=== PATIENT | male | born 1945 | race Caucasian/White ===

== ENCOUNTER 2020-01-14 07:03 | Observation (INO) | payer MEDICARE ==
[~2020-01-14] VITALS: Ht 167.6 cm; Wt 72.7 kg
[~2020-01-14 07:03] MED LIST: ALPR0.5T6 PO; ASPI-496 PO; DOXA4TAB3 PO; GLIP2.5T3 PO; LISI2.5T PO; OMEG1CAP6 PO; ROSU5TAB PO
[2020-01-14] MEDS: SODIUM CHLORIDE 0.9% 1,000 ML IV SCH ×3 (07:34→23:34)
[2020-01-14 07:39] VITALS: BP 122/71
[2020-01-14] MEDS ORDERED: HYDR25TA6 PO (07:58)
[2020-01-14] MEDS ORDERED: METF500T17 PO (07:58)
[2020-01-14] MEDS ORDERED: LISI-170 PO (07:58)
[2020-01-14] MEDS ORDERED: ATOR20TA37 PO (07:58)
[2020-01-14] MEDS ORDERED: FLUT15.845 INH (07:58)
[2020-01-14] MEDS ORDERED: CETI-158 PO (07:58)
[2020-01-14] MEDS ORDERED: MIDAZOLAM 1 MG/ML, 5ML ONE (08:22)
[2020-01-14] MEDS ORDERED: LIDOCAINE 2%, 20ML ONE ×2 (08:23→09:23)
[2020-01-14] MEDS ORDERED: CEFAZOLIN 1,000 MG ONE (08:23)
[2020-01-14] MEDS ORDERED: CEFAZOLIN PMX 1GM/50ML 50 ML ONE (08:23)
[2020-01-14] MEDS ORDERED: FENTANYL PF 100 MCG/2ML ONE (08:23)
[2020-01-14 08:33] LABS: BASOPHILS # (AUTO) 0.03 x10^3/uL (0-0.1); BASOPHILS % (AUTO) 0 % (0-1); EOSINOPHILS % (AUTO) 5 % (1-7); LYMPHOCYTES # (AUTO) 1.98 x10^3/uL (1-3.4); LYMPHOCYTES % (AUTO) 24 % (22-44); MD NO; MEAN CORPUSCULAR HEMOGLOBIN 30.9 pg (27.5-34.5); MEAN CORPUSCULAR HGB CONC 32.4 g/dL (33.2-36.2); MEAN CORPUSCULAR VOLUME 95.3 fL (81-97); MEAN PLATELET VOLUME 7.7 fL (7.4-10.4); MONOCYTES % (AUTO) 9 % (2-9); NEUTROPHILS # (AUTO) 5.11 x10^3/uL (1.8-6.8); NEUTROPHILS % (AUTO) 62 % (42-75); PLATELET COUNT 272 x10^3/uL (130-400); RED CELL DISTRIBUTION WIDTH 13.1 % (9.4-14.8)
[2020-01-14 08:41] LABS: ANION GAP 5 mmol/L (5-15); CALCIUM 9.1 mg/dL (8.5-10.1); CHLORIDE 104 mmol/L (98-107); CREATININE 1.29 mg/dL (0.7-1.3)
[2020-01-14] MEDS ORDERED: ONDANSETRON 2MG/ML, 2ML ONE (08:56)
[2020-01-14] MEDS ORDERED: ONDANSETRON 2MG/ML, 2ML IV PRN (10:00)
[2020-01-14] MEDS ORDERED: HYDROcodone/APAP 5/325 TABLET PO PRN (10:00)
[2020-01-14] MEDS ORDERED: ZOLPIDEM 5MG TABLET PO PRN (10:00)
[2020-01-14] MEDS ORDERED: Hold all anticoagulants for 24 hours MC PRN (10:00)
[2020-01-14] MEDS ORDERED: CEFAZOLIN PMX 1GM/50ML 50 ML IVPB SCH (10:00)
[2020-01-14] MEDS ORDERED: CALCIUM CARBONATE 500 MG TAB.CHEW PO PRN (11:30)
[2020-01-14 14:00] VITALS: BP 134/60
[2020-01-14 18:30] VITALS: BP 146/69
[2020-01-14] MEDS ORDERED: AMIODARONE 150 MG in DEXTROSE 5% 100 ML IV ONE (19:30)
[2020-01-14] MEDS ORDERED: AMIODARONE 450 MG in DEXTROSE 5% 241 ML IV PRN (19:30)
[2020-01-14] MEDS: SODIUM CHLORIDE FLUSH 10ML SYR IVF SCH (20:12)
[2020-01-14] MEDS ORDERED: MELATONIN 5 MG TABLET PO PRN (21:00)
[2020-01-14] MEDS ORDERED: metFORMIN 500 MG TABLET PO SCH (21:00)
[2020-01-15 01:14] VITALS: BP 122/62
[2020-01-15 06:34] VITALS: BP 112/65
[2020-01-15] MEDS: SODIUM CHLORIDE 0.9% 1,000 ML IV SCH (07:24)
[2020-01-15] MEDS: SODIUM CHLORIDE FLUSH 10ML SYR IVF SCH (08:11)
[2020-01-15] MEDS ORDERED: ASPIRIN 81 MG TABLET EC PO SCH (09:00)
[2020-01-15] MEDS ORDERED: CETIRIZINE 10 MG TABLET PO SCH (09:00)
[2020-01-15] MEDS ORDERED: OMEGA-3/FISH OIL CAPSULE PO SCH (09:00)
[2020-01-15] MEDS ORDERED: HYDROCHLOROTHIAZIDE 25 MG TABLET PO SCH (09:00)
[2020-01-15] MEDS ORDERED: LISINOPRIL 20 MG TABLET PO SCH (09:00)
[2020-01-15] MEDS ORDERED: ATORVASTATIN 20 MG TABLET PO SCH (09:00)
[2020-01-15] MEDS ORDERED: ACETAMINOPHEN 325 MG TABLET PO PRN (09:30)
== END 2020-01-15 10:18 | disposition home or self-care (01) ==
LOC: CACL 07:03 → 5SO 09:52 → CACL 10:43 → DCLOUNGE 01-15 10:08
PROVIDERS: ADMIT Internal Medicine Cardiovascular Disease; ATTEND Internal Medicine Cardiovascular Disease
DX: I49.5 Sick sinus syndrome (principal); I10 Essential (primary) hypertension; E78.2 Mixed hyperlipidemia; R55 Syncope and collapse; I73.9 Peripheral vascular disease, unspecified; E11.9 Type 2 diabetes mellitus without complications; E78.00 Pure hypercholesterolemia, unspecified; I45.2 Bifascicular block; F41.9 Anxiety disorder, unspecified; Z79.899 Other long term (current) drug therapy; Z79.82 Long term (current) use of aspirin; Z79.84 Long term (current) use of oral hypoglycemic drugs
CPT/HCPCS: 33208; 36415; 71045; 71046; 80048; 85025; 93005; 99156; 99157; C1779; C1785; C1892; G0378; J0690; J2250; J2405; J3010; J3490

== ENCOUNTER 2020-12-28 07:45 | Outpatient (CLI) | payer MEDICARE ==
[~2020-12-28 07:45] MED LIST changes: -ALPR0.5T6 PO; +ALPR0.5T93 PO; +ATOR20TA37 PO; +CETI-158 PO; +FLUT15.845 INH; +HYDR25TA6 PO; +LISI-170 PO; +METF500T17 PO; +REGADENOSON 0.4 MG/5 ML SYRINGE ONE
== END 2020-12-28 23:59 | disposition home or self-care (01) ==
LOC: CFH 07:45
PROVIDERS: ATTEND Physician Assistant Medical
DX: I10 Essential (primary) hypertension (principal); R55 Syncope and collapse
CPT/HCPCS: 78452; 93017; A9502; J2785